=== PATIENT | male | born 2000 | race Caucasian/White ===

== ENCOUNTER 2020-11-25 12:16 | Outpatient (REF) | payer BC, SELFPAY ==
[2020-11-25 12:42] LABS: COVID-19 Test Negative (Negative); IDNOW Serial# 55D5AD1C
== END 2020-11-25 12:17 | disposition home or self-care (01) ==
LOC: HO.LAB 12:16
PROVIDERS: Visit Provider Internal Medicine
DX: Z20.822 Contact with and (suspected) exposure to COVID-19 (principal)
CPT/HCPCS: 36415; 87635; C9803

== ENCOUNTER 2022-04-13 15:25 | Emergency (ER) | payer BC, SELFPAY ==
--- NOTE | ~2022-04-13 | XR_ITS ---
EXAMINATION: XR ANKLE, RIGHT CLINICAL INFORMATION: Right ankle pain COMPARISON: None TECHNIQUE: AP, lateral, and mortise views of the right ankle. FINDINGS: Exam demonstrates oblique fracture of the distal fibula. There is mild distraction by approximately 5 mm with the distal fracture fragment displaced posterior and lateral to the proximal fracture fragment. Mild overriding. Findings also suggest some possible widening of the mortise. XR/XR ankle RT 2V IMPRESSION: Oblique fracture the distal fibula which is distracted and possible widening of the medial mortise
[2022-04-13 15:28] VITALS: BP 151/99; PULSE 76; RESP 18; TEMP 36.8; O2SAT 98; BMI 35.2
--- NOTE | 2022-04-13 17:29 | ED.EXTPRO ---
HPI - Extremity Problem General Chief complaint: Extremity Problem Stated complaint: right ankle inj Time Seen by Provider: 04/13/22 17:29 Source: patient Mode of arrival: ambulatory History of Present Illness HPI Narrative: 21-year-old male who presents with right ankle pain and swelling after skateboarding with a plant in twisting motion. He denies any numbness/tingling/weakness and is able to wiggle his toes. Related Data Allergies Allergy/AdvReac Type Severity Reaction Status Date / Time No Known Allergies Allergy Unverified 04/30/20 16:47 Review of Systems Review of Systems: Pertinent positives and negatives as stated in HPI 10 point review of systems is otherwise negative. PMFSH Past Medical History Source: nursing notes reviewed Social History Social History Advance Directives: No Advance Directives Information Provided: No Physical Exam Vital Signs: Vital Signs: Last Vital Signs Temp 98.2 F 04/13/22 15:28 Pulse 76 04/13/22 15:28 Resp 18 04/13/22 15:28 BP 151/99 H 04/13/22 15:28 Pulse Ox 98 04/13/22 15:28 O2 Del Method 04/13/22 15:28 BMI result Body Mass Index 35.2 VITAL SIGNS: Reviewed. GENERAL: Well developed, well nourished, in no acute distress. HEAD: Normocephalic/atraumatic EYES: PERRLA, EOMI EARS: Ext canals without abnormality OROPHARYNX: no oral lesions noted, posterior pharynx clear LUNGS: Normal breath sounds. No adventitious sounds or accessory muscle use. SpO2<98> CARDIOVASCULAR: Regular rate and rhythm without noted murmurs ABDOMEN: Soft, non-tender, non-distended with bowel sounds. MUSCULOSKELETAL: No tenderness, deformities, or effusions noted on gross inspection. EXTREMITIES: No cyanosis, clubbing or edema; RIGHT ANKLE: Swelling, no ecchymosis or erythema, no obvious deformity, pain on palpation over lateral malleolus palpable DP/PT with good capillary refill in foot is warm with sensation intact.. SKIN: Inspection of the skin reveals no rashes NEUROLOGIC: Alert and oriented x 4. Strength and sensation to light touch were grossly intact x 4. Course Course Course Narrative: 21-year-old male with history and clinical presentation most consistent with sprain versus fracture and after review of imaging studies patient clearly has distracted Lyle Edmond. I discussed the case with orthopedics who agrees with placement in walking boot and crutches as well as nonweightbearing and I discussed all results with the patient at bedside and he understands he needs call Orthopedics in the morning and set up an appointment for imminent surgery. He was provided with combination analgesics given crutch training and discharged home in stable condition. Discharge Plan Discharge Clinical Impression: Closed right fibular fracture Patient Disposition: Home, Self-Care Instructions: Leg Fracture (ED), Crutch Instructions (ED), Walking Boot (ED) Additional Instructions: 1. Recommend [id number] Tylenol/ibuprofen as needed for pain control. 2. You should never place weight on this right foot, keep elevated as much as possible and apply ice to unexposed skin for 10-15 minutes, 3 to 4 times a day. 3. Call the student finance specialist 1st thing in the morning to set up an immediate appointment for re-evaluation and please state clearly that you have been evaluated here in the ER. Return to the ER for worsening symptoms. Referrals: Ricky Evans MD [Physician] - Stand Alone Forms: Work/School Release
== END 2022-04-13 18:39 | disposition home or self-care (01) ==
PROVIDERS: Emergency Provider Student in an Organized Health Care Education/Training Program
DX: S82.401A Unspecified fracture of shaft of right fibula, initial encounter for closed fracture (principal); M79.604 Pain in right leg; W01.0XXA Fall on same level from slipping, tripping and stumbling without subsequent striking against object, initial encounter; Y93.9 Activity, unspecified; Y92.9 Unspecified place or not applicable; Y99.9 Unspecified external cause status
CPT/HCPCS: 73600; 99283

== ENCOUNTER 2022-04-25 08:40 | Outpatient (REF) | payer BC, SELFPAY ==
--- NOTE | ~2022-04-25 | XR_ITS ---
EXAMINATION: XR ANKLE, RIGHT CLINICAL INFORMATION: Pain right ankle and joints. COMPARISON: Right ankle 04/13/2022 TECHNIQUE: AP, lateral, and mortise views of the right ankle. FINDINGS: There is oblique healing fracture distal fibula with mild soft tissue swelling. No callus formation seen yet the ankle mortise and subtalar joints are normal. There is mild bimalleolar soft tissue swelling. XR/XR ankle RT min 3V IMPRESSION: Mildly displaced oblique fracture distal fibula is again visualized with mild lateral malleolar soft tissue swelling. No major change from 04/13/2022.
== END 2022-04-25 08:41 | disposition home or self-care (01) ==
LOC: HO.HOSX 08:40
PROVIDERS: Visit Provider Physician Assistant
DX: M25.571 Pain in right ankle and joints of right foot (principal)
CPT/HCPCS: 73610

== ENCOUNTER 2022-04-27 06:11 | Day surgery (SDC) | payer BC, SELFPAY ==
[2022-04-27] VITALS (15 sets, daily range): BP systolic 143–170; BP diastolic 48–104; PULSE 54–87; RESP 16–22; TEMP 35.7–36.6; O2SAT 95–100; BMI 35.2
--- NOTE | ~2022-04-27 | FL_ITS ---
EXAMINATION: XR FLUOROSCOPY WITH IMAGES CLINICAL INFORMATION: Fracture right ankle. Reduction. COMPARISON: Radiographs right ankle 04/25/2022, 04/13/2022. TECHNIQUE: Fluoroscopy performed by Dr. Ricky Evans. Fluoroscopy time: 0.3 minutes. Cumulative Dose: 1.02 mGy. DAP: 0.0165 Gy-cm2. Images: 3. FINDINGS: Distal fibular fracture is reduced with lateral plate and multiple screws. Fracture is and near-anatomic alignment. The hardware is intact. The ankle mortise is symmetric. No dislocation or destructive process. FL/FL guidance in OR IMPRESSION: Status post reduction internal fixation ankle fracture. Hardware intact.
[2022-04-27] MEDS: Lactated Ringers 1,000 ML 50 ML IVCONT (06:49)
--- NOTE | 2022-04-27 06:50 | PC.NURSE ---
pts left ankle abrasion noted. pt sts this abrasion occurred with a fall from skateboard all aware +ppp swelling noted denies numbness tingling
--- NOTE | 2022-04-27 07:20 | HO.ANESPROP2 ---
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, 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 [employer] Meds Allergies Allergy/AdvReac Type Severity Reaction Status Date / Time No Known Allergies Allergy Verified 04/27/22 06:28 Active Medications: Current Medications Lactated Ringer's (Lr) 1,000 mls @ 50 mls/hr IVCONT .Q20H PARVIN Last Admin: 04/27/22 06:49 Dose: 50 mls/hr Exam Exam Date and Time: April 27, 2022 0720 Height,Weight and Vital Signs: Height 5 ft 7 in Weight 102.058 kg Last Vital Signs Temp 98 F 04/27/22 06:14 Pulse 78 04/27/22 06:14 Resp 18 04/27/22 06:14 BP 143/73 H 04/27/22 06:14 Pulse Ox 98 04/27/22 06:14 O2 Del Method 04/27/22 06:14 Airway Mallampati Class: III TM Dist: >3cm Neck ROM: Full Loose/Missing/Broken Teeth: Yes (Braces ) Heart: S1,S2 Lungs: b/l breath sounds Assessment and Plan Assessment Anesthesia Assessment: Anesthesia Plan Discussed and Chart Reviewed Final Anesthetic Review Family History of Problems with Anesthesia: No History of Problems with Anesthesia: No NPO: Yes ASA Class: II Final Preanesthetic Review: Meds/Allgs Chart Reviewed, Consent Obtained/Reviewed and Anes Risks/Benef Reviewed Patient Risk: Intermediate Procedure Risk: Intermediate Anesthetic Plan Anesthetic Plan: GA Disposition: Standard PACU
--- NOTE | 2022-04-27 07:29 | MHC.SHP ---
Pre-Procedural Eval Section A Date of Service: 04/27/22 The patient is an INPATIENT: No Changes since office visit: Yes Patient answered all questions; No Cold of Flu in the past 2 weeks, No New Medical Problems and No Changes in Medication The History & Physical has been completed within 30 days and I have reviewed it.: Yes Section B Chief Complaint: ankle fx Allergies: Allergies Allergy/AdvReac Type Severity Reaction Status Date / Time No Known Allergies Allergy Verified 04/27/22 06:28 Plan I have reviewed the history and physical and performed a pertinent physical examination on my patient. No changes have occurred unless specified.
--- NOTE | 2022-04-27 09:07 | P.BOP_ITS ---
Brief Operative Note Date of Service: 04/27/22 Pre-op diagnosis: Right ankle fracture Post-op diagnosis: same Procedure: Right lateral malleolus ORIF Right syndesmosis ORIF Implants: Shekhar lateral malleolus locking plate and 600 mm 3.5mm syndesmosis screw. Surgeon: Ricky Evans MD Anesthesia: GETA and local Was an Lost And Found Clerk used for this Procedure?: Yes Lost And Found Clerk: Lyndsay Ababsi Estimated blood loss (mL): 5 Tourniquet time (min): 45 Pathology: none sent Condition: stable Disposition: PACU
[2022-04-27] MEDS: Acetaminophen 325 MG TABLET 650 MG PO (11:46)
[2022-04-27] MEDS: HYDROmorphone HCl 0.5 MG/0.5 ML SYRINGE 0.25 MG IVPUSH (11:47)
[2022-04-27] MEDS: oxyCODONE HCl Immed Release 5 MG TABLET PO (11:47)
--- NOTE | 2022-04-29 14:26 | P.OP_ITS ---
Operative Note Operative Note Date of Service: 04/27/22 Narrative: Date of Service: 04/27/22 Pre-op diagnosis: Right ankle fracture Post-op diagnosis: same Procedure: Right lateral malleolus ORIF Right syndesmosis ORIF Implants: Shekhar lateral malleolus locking plate and 600 mm 3.5mm syndesmosis screw. Surgeon: Ricky Evans MD Anesthesia: GETA and local Was an Loop Machine Operator used for this Procedure?: Yes Loop Machine Operator: Lyndsay Abbasi Estimated blood loss (mL): 5 Tourniquet time (min): 45 Pathology: none sent Condition: stable Disposition: PAC Procedure in detail: Patient was brought to the operating room and placed supine on the operative table. All bony prominences were well padded and a time-out was called to identify proper site proper procedure proper surgeon. IV antibiotics per weight were administered. I began by exsanguinating limb is slightly tourniquet to 300 mm Hg. I then made a standard posterolateral incision over the fibula. Full- thickness flaps were taken down to the fibular shaft and distal fibula. The fracture was identified and cleaned with a combination of curette, rongeur and irrigation. A lobster claw was used to provisionally reduce the fracture and a interfragmentary screw was placed using standard AO technique. A 6 hole distal fibular locking plate was applied using standard AO technique. Biplanar fluoroscopy was used to confirm hardware position and fracture reduction. Once I was satisfied that both of these were acceptable I irrigated copiously and turned my attention to the syndesmosis This syndesmosis was tested using external rotation test and was found to be unstable with mortise widening and increaded tib/fib clear space. I used a C- clamp with reduce the mortise and then placed a 3.5 cortical screw through 4 cortices in a posterior to anterior ( 20deg) plane. The syndesmosis was re- tested and stable. Therefore all instrumentation was removed and copious irrigation was performed. Absorbable suture and levon were used for closure and the patient was placed into sterile dressings and a well-padded posterior splint. Tourniquet was let down and the patient was extubated brought to recovery room in stable condition there were no known complications.
== END 2022-04-27 13:00 | disposition home or self-care (01) ==
PROVIDERS: Visit Provider Orthopaedic Surgery
PROC: (CPT 27792; principal; 2022-04-27 07:30)
DX: S82.61XA Displaced fracture of lateral malleolus of right fibula, initial encounter for closed fracture (principal); S93.431A Sprain of tibiofibular ligament of right ankle, initial encounter; S90.511A Abrasion, right ankle, initial encounter; W17.89XA Other fall from one level to another, initial encounter; Y93.51 Activity, roller skating (inline) and skateboarding; Y92.9 Unspecified place or not applicable; Y99.8 Other external cause status; J45.909 Unspecified asthma, uncomplicated
CPT/HCPCS: 27792; 27829; A4649; C1713; J0690; J1100; J1170; J2250; J2405; J2550; J2795; J3010

== ENCOUNTER 2022-05-12 08:05 | Outpatient (REF) | payer BC, SELFPAY ==
--- NOTE | ~2022-05-12 | XR_ITS ---
EXAMINATION: XR ANKLE, RIGHT CLINICAL INFORMATION: Pain right ankle and right foot COMPARISON: Right ankle 04/25/2022 TECHNIQUE: AP, lateral, and mortise views of the right ankle. FINDINGS: There is a lateral fibular plate and screws and a solitary long screw through the distal tibia for internal fixation of a distal fibular fracture are noted unchanged. 2 small metallic screws/pins along the medial malleolar region are unchanged. Skin levon are again visualized. The ankle mortise and subtalar joints are normal. XR/XR ankle RT min 3V IMPRESSION: Status post internal stabilization of right distal fibular fracture with metallic hardware is stable No significant change.
== END 2022-05-12 08:06 | disposition home or self-care (01) ==
LOC: HO.HOSX 08:05
PROVIDERS: Visit Provider Physician Assistant
DX: S82.891D Other fracture of right lower leg, subsequent encounter for closed fracture with routine healing (principal); X58.XXXD Exposure to other specified factors, subsequent encounter
CPT/HCPCS: 29405; 73610

== ENCOUNTER 2022-06-09 08:53 | Outpatient (REF) | payer BC, SELFPAY ==
--- NOTE | ~2022-06-09 | XR_ITS ---
EXAMINATION: XR ANKLE, RIGHT CLINICAL INFORMATION: Ankle pain COMPARISON: 05/12/2022 TECHNIQUE: AP, lateral, and mortise views of the right ankle. FINDINGS: No acute fracture or dislocation. Distal plate and screws device affixes a healing distal fibular fracture in satisfactory alignment without evidence of hardware complication. Tibiofibular screw is noted without evidence of hardware complication. Ankle mortise is noted. XR/XR ankle RT min 3V IMPRESSION: 1. No acute fracture or dislocation. 2. Healing distal fibular fracture status post ORIF without evidence of hardware complication.
== END 2022-06-09 08:54 | disposition home or self-care (01) ==
LOC: HO.HOSX 08:53
PROVIDERS: Visit Provider Orthopaedic Surgery
DX: M25.571 Pain in right ankle and joints of right foot (principal)
CPT/HCPCS: 73610

== ENCOUNTER 2022-07-21 12:41 | Outpatient (REF) | payer BC, SELFPAY ==
--- NOTE | ~2022-07-21 | XR_ITS ---
EXAMINATION: XR ankle RT min 3V CLINICAL INFORMATION: Reason for Exam M25.579 - Pain in unspecified ankle and joints of unspecified foot COMPARISON: Radiographs 06/09/2022 TECHNIQUE: AP, lateral, and oblique views of the ankle FINDINGS: Status post ORIF of the ankle with a plate and screw fixation of the distal fibular metadiaphysis and a syndesmotic surgical screw. There are decreased conspicuity of the distal fibular fracture margins with bridging bony callus formation. No evidence of hardware fracture or complication. Joint spaces are maintained without significant degenerative change. Trace residual tibiotalar joint effusion. XR/XR ankle RT min 3V IMPRESSION: Status post ORIF of the ankle. There are decreased conspicuity of the distal fibular fracture margins with bridging bony callus formation. No evidence of hardware fracture or complication. Trace residual tibiotalar joint effusion.
== END 2022-07-21 12:42 | disposition home or self-care (01) ==
LOC: HO.HOSX 12:41
PROVIDERS: Visit Provider Orthopaedic Surgery
DX: M25.571 Pain in right ankle and joints of right foot (principal)
CPT/HCPCS: 73610

== ENCOUNTER 2022-07-26 11:40 | Day surgery (SDC) | payer BC, SELFPAY ==
--- NOTE | 2022-07-25 08:25 | HO.ANESPROP2 ---
Documented by User: Neetu Hutchinson NP 07/25/22 08:25 HPI - Anesthesia Eval Consult details Narrative: 21yo M for Right Removal Orthopedic Hardware ankle s/p ankle ORIF 04/28/22 with GA-LMA 5 PMFSH Active Problems Active Problems: All Active Problems (Updated 05/19/22 @ 14:48 by Jay Kelley) Ankle fracture, right (Acute) Ankle fracture, left (Acute) Past Medical History Medical History Asthma Family History Family history of problems with anesthesia: No Surgical History Surgical History History of open reduction and internal fixation (ORIF) procedure History of Problems with Anesthesia: No Social History Social History Patient Tobacco Use Status: Never used Tobacco Substance Use Frequency: Daily Are you DNR?: No Advance Directives: No Advance Directives Information Provided: Yes Nutrition Risks: No Nutritional Risk Current occupational status: employed 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, 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 [employer] Allergies Allergy/AdvReac Type Severity Reaction Status Date / Time No Known Allergies Allergy Verified 07/21/22 13:43 Home Medications Medication Instructions Recorded Confirmed Last Taken Type ibuprofen 200 mg tablet (Motrin IB) 400 mg PO Q8H 07/21/22 Unknown History Exam Exam Date and Time: July 25, [id number] Assessment and Plan Assessment Anesthesia Assessment: Chart Reviewed Final Anesthetic Review Family History of Problems with Anesthesia: No History of Problems with Anesthesia: No Documented by User: Napoleon Carson MD 07/26/22 13:27 [facility] Past Medical History Medical History Asthma Surgical History Surgical History History of open reduction and internal fixation (ORIF) procedure Social History Social History Patient Tobacco Use Status: Never used Tobacco Substance Use Frequency: Daily Are you DNR?: No Advance Directives: No Advance Directives Information Provided: Yes Nutrition Risks: No Nutritional Risk Current occupational status: employed 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, 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 [employer] Allergies Allergy/AdvReac Type Severity Reaction Status Date / Time No Known Allergies Allergy Verified 07/21/22 13:43 Home Medications Medication Instructions Recorded Confirmed Last Taken Type ibuprofen 200 mg tablet (Motrin IB) 400 mg PO Q8H 07/21/22 Unknown History Exam Airway Mallampati Class: II TM Dist: >3cm Neck ROM: Full Loose/Missing/Broken Teeth: No Assessment and Plan Final Anesthetic Review NPO: Yes ASA Class: I Final Preanesthetic Review: No Changes in Pt Med Stat, Meds/Allgs Chart Reviewed, Consent Obtained/Reviewed and Anes Risks/Benef Reviewed Patient Risk: Low Procedure Risk: Low Anesthetic Plan Anesthetic Plan: MAC: Disposition: Standard PACU
--- NOTE | ~2022-07-26 | FL_ITS ---
EXAMINATION: XR FLUOROSCOPY WITH IMAGES CLINICAL INFORMATION: Right ankle ORIF. COMPARISON: Right ankle radiographs dated 07/21/2022 and 06/09/2022. TECHNIQUE: Fluoroscopy Supervised By: Dr. Evans. Fluoroscopy Time: Not provided. Cumulative Dose: 0.108 mGy. DAP: 0.20167 Gycm2. Images: 1. FL/FL guidance in OR FINDINGS/IMPRESSION: Interval removal of distal tibiofibular screw. Distal fibular lateral fixation plate and securing screws are still in place without abnormality. Please refer to the procedure report for more detailed findings.
[2022-07-26 11:54] VITALS: BMI 34.4
[2022-07-26] MEDS: Lactated Ringers 1,000 ML 100 ML IVCONT (11:59)
[2022-07-26 12:13] VITALS: BP 130/67; PULSE 65; RESP 18; TEMP 36.6; O2SAT 98
[2022-07-26 13:30] VITALS: BP 142/81; PULSE 74; RESP 15; TEMP 36.6; O2SAT 95
--- NOTE | 2022-07-26 13:38 | P.BOP_ITS ---
Brief Operative Note Date of Service: 07/26/22 Pre-op diagnosis: Syndesmosis screw right ankle Post-op diagnosis: same Procedure: TAZ right ankle Implants: None Surgeon: Ricky Evans MD Anesthesia: MAC and local Was an Stave Hewer used for this Procedure?: No Estimated blood loss (mL): 2 IV fluids (mL): 300 Pathology: none sent Condition: stable Disposition: PACU
--- NOTE | 2022-07-26 13:38 | MHC.SHP ---
Pre-Procedural Eval Section A Date of Service: 07/26/22 The patient is an INPATIENT: No Changes since office visit: No Cold of Flu in the past 2 weeks, No New Medical Problems, No Changes in Medication and No Patient answered all questions The History & Physical has been completed within 30 days and I have reviewed it.: Yes Section B Chief Complaint: Other fracture of right lower leg, initial encount Allergies: Allergies Allergy/AdvReac Type Severity Reaction Status Date / Time No Known Allergies Allergy Verified 07/21/22 13:43 Plan I have reviewed the history and physical and performed a pertinent physical examination on my patient. No changes have occurred unless specified. Time Spent With Patient Time: Total time managing care of this patient today ____ minutes.
[2022-07-26 13:45] VITALS: BP 124/78; PULSE 76; RESP 15; O2SAT 95
--- NOTE | 2022-07-27 13:52 | W.PM.OPN ---
Operative Note Operative Note Date of Service: 07/27/22 Narrative: Date of Service: 07/26/22 Pre-op diagnosis: Syndesmosis screw right ankle Post-op diagnosis: same Procedure: TAZ right ankle Implants: None Surgeon: Ricky Evans MD Anesthesia: MAC and local Was an Setter Induction Heating Equipment used for this Procedure?: No Estimated blood loss (mL): 2 IV fluids (mL): 300 Pathology: none sent Condition: stable Disposition: PACU Procedure in detail: Patient was brought to the operating room and placed supine on the surgical table. He was prepped and draped in standard sterile fashion and a time out was called to indentify proper site, proper procedure and IV antibiotics per weight were administered. I beann by localizing the syndesmosis scew and a stab incision was made over the screw head. A screwdriver was used to remove the screw and the wound was irrigated and closed with absorbable suture and levon. The patient was placed in sterile dressing and awakened from anesthesia and brought to the recovery room in stable condition .There were no known complications.
== END 2022-07-26 14:32 | disposition home or self-care (01) ==
PROVIDERS: Visit Provider Orthopaedic Surgery
PROC: (CPT 20680; principal; 2022-07-26 13:50)
DX: Z47.2 Encounter for removal of internal fixation device (principal); S82.891A Other fracture of right lower leg, initial encounter for closed fracture; X58.XXXA Exposure to other specified factors, initial encounter; Y93.9 Activity, unspecified; Y92.9 Unspecified place or not applicable; Y99.8 Other external cause status; J45.909 Unspecified asthma, uncomplicated; Z79.1 Long term (current) use of non-steroidal anti-inflammatories (NSAID)
CPT/HCPCS: 20680; J0690; J2250; J2795; J3010

== ENCOUNTER 2022-08-05 07:54 | Outpatient (REF) | payer BC, SELFPAY | END 2022-08-05 07:55 | disposition home or self-care (01) | LOC: HO.HOSX 07:54 | PROVIDERS: Visit Provider Physician Assistant | DX: Z13.89 Encounter for screening for other disorder (principal) ==